=== PATIENT | female | born 1985 | race Caucasian/White ===

== ENCOUNTER 2018-11-26 08:55 | Emergency (ER) | payer OTHER ==
[~2018-11-26] VITALS: Ht 160 cm; Wt 93.8 kg
[~2018-11-26 08:55] MED LIST: ASC500 PO; FER325 PO; IBUP-1542 PO; ISON300T18 PO; LEVO-86 PO; PYRI50TA14 PO
[2018-11-26 09:09] VITALS: BP 151/69; PULSE 83; RESP 18; Ht 160 cm; Wt 93.8 kg
[2018-11-26] MEDS ORDERED: KETOROLAC 60 MG INJ IM STA (10:13)
--- NOTE | 2018-11-26 10:22 | ERD ---
ER Documentation Chief Complaint Chief Complaint sorethroat x1wk, speaking full sentences, lump on foot x4 days HPI 33-year-old female complains of sore throat for the past week. States that she is been having some difficulty swallowing. States she is up-to-date on her vaccines. Denies drooling, trismus, muffled voice, difficulty breathing, rash, or neck stiffness. In addition she states is been having some pain on the heel of her left foot for about a month. States the pain hurts when she walks. States the pain is worse in the morning. Denies any trauma to the foot. Denies any numbness, tingling, fevers, chills. States that she took ibuprofen yesterday. History of hypothyroidism. Denies allergies. ROS All systems reviewed and are negative except as per history of present illness. Medications Home Meds Active Scripts Ibuprofen* (Motrin*) 600 Mg Tab, 600 MG PO Q6H PRN for PAIN AND OR ELEVATED TEMP, #30 TAB Prov:ADRIANA MILLIGAN 11/26/18 Ibuprofen* (Motrin*) 600 Mg Tab, 600 MG PO Q6H PRN for PAIN AND OR ELEVATED TEMP, #30 TAB Prov:JAYNA KHANNA [employer] 01/18/16 Reported Medications Ferrous Sulfate* (Ferrous Sulfate*) 325 Mg Tabec, 325 MG PO BID, TAB 04/23/14 Ascorbic Acid (Vitamin C) 500 Mg Tab, 500 MG PO DAILY, TAB 04/23/14 Pyridoxine Hcl* (Pyridoxine Hcl*) 50 Mg Tablet, 50 MG PO DAILY, TAB 04/23/14 Isoniazid* (Isoniazid*) 300 Mg Tablet, 300 MG PO DAILY, TAB 04/23/14 Levothyroxine Sodium* (Synthroid*) 100 Mcg Tablet, 300 MCG PO DAILY, TAB 04/23/14 Allergies Allergies: Coded Allergies: No Known Allergy (Verified , 04/23/14) PMhx/Soc History of Surgery: Yes (tonsillectomy) Anesthesia Reaction: No Hx Neurological Disorder: No Hx Respiratory Disorders: No Hx Cardiac Disorders: Yes (ENLARGED HEART) Hx Psychiatric Problems: No Hx Miscellaneous Medical Probl: Yes (HYPOTHYROIDISM) Hx Alcohol Use: No Hx Substance Use: No Hx Tobacco Use: No FmHx Family History: No diabetes, No coronary disease, No other Physical Exam Vitals Vital Signs Date Temp Pulse Resp B/P (MAP) Pulse Ox O2 O2 Flow FiO2 Time Delivery Rate 11/26/18 98.1 83 18 151/69 98 09:09 (96) Physical Exam Const: No acute distress Head: Atraumatic Eyes: Normal Conjunctiva ENT: Normal External Ears, Nose and Mouth. Tonsils are nonedematous erythematous bilaterally without exudates. Uvula is midline. No peritonsillar masses noted. No drooling noted. Neck: Full range of motion. No meningismus. Resp: Clear to auscultation bilaterally Cardio: Regular rate and rhythm, no murmurs Abd: Soft, non tender, non distended. Normal bowel sounds Skin: No petechiae or rashes Back: No midline or flank tenderness Ext: No cyanosis, or edema Neur: Awake and alert Psych: Normal Mood and Affect Results 24 hrs Laboratory Tests Test 11/26/18 10:26 POC Beta HCG, Qualitative NEGATIVE Current Medications Medications Dose Sig/Abad Start Time Status Last (Trade) Ordered Route PRN Stop Time Admin Dose Reason Admin Ketorolac 60 mg ONCE STAT 11/26/18 DC 11/26/18 Tromethamine IM 10:13 10:36 (Toradol) 11/26/18 10:14 Procedures/MDM DIAGNOSTIC IMAGING REPORT Patient: LYNN MAYO : 1985 Age: 33 Sex: F MR #: [id number] DOS: 11/26/18 1011 Ordering MD: ADRIANA MILLIGAN Location: [facility] Room/Bed: PROCEDURE: X-ray soft tissue neck CLINICAL INDICATION: Sore throat TECHNIQUE: AP and lateral x-ray of the soft tissues of the neck areavailable for review. COMPARISON: None available FINDINGS: The epiglottis is normal. The airway is clear. No significant airway compromise is seen. No radiopaque foreign body is identified. No other abnormality is seen. The osseous structures are unremarkable. IMPRESSION: Unremarkable soft tissue neck RPTAT: KK Physician Chase Date Time Electronically viewed and signed by Physician Chase on 11/26/2018 11:12 RL/ CC: ADRIANA MILLIGAN [id number] ER Course: Soft tissue x-ray was performed to rule a retropharyngeal abscess or epiglottitis. Results within normal limits. Rapid strep was ordered. Results are negative. MDM: I have low suspicion for epiglottitis, peritonsilar abscess, ludwigs angina, retropharyngeal abscess, or other emergent etiologies based on patients exam and history. Regarding patient's foot pain, presentation consistent with plantar fasciitis. Patient given instructions on how to stretch the foot as well as pain medications as needed. If that does not resolve symptoms patient is advised to follow-up with [facility]. I have low suspicion for neurovascular compromise, compartment syndrome, fracture, osteomyelitis, septic joint, or other emergent condition. Patient discharged with strict ER precautions. Patient advised to follow up with PMD. All questions answered at discharge. Departure Diagnosis: Primary Impression: Sore throat Additional Impression: Plantar fasciitis of left foot Condition: Stable ADRIANA MILLIGAN Nov 26, 2018 10:22
[2018-11-26] MEDS ORDERED: IBUP-1542 PO (10:23)
== END 2018-11-26 11:41 | disposition home or self-care (01) ==
LOC: FTE 08:55
DX: J02.9 Acute pharyngitis, unspecified (principal); M72.2 Plantar fascial fibromatosis; E03.9 Hypothyroidism, unspecified
CPT/HCPCS: 70360; 81025; 87880; 96372; J1885; Z7502